=== PATIENT | male | born 1950 ===

== ENCOUNTER 2025-02-13 10:00 | Day surgery (SDC) | payer OTHER ==
[2025-02-06 15:42] VITALS: BP 150/82
[~2025-02-13] VITALS: Ht 167.6 cm; Wt 65.8 kg
[2025-02-13] MEDS ORDERED: CEFAZOLIN SODIUM 1,000 MG VIAL ONE (12:52)
[2025-02-13] MEDS ORDERED: LIDOCAINE HCL 1%/EPINEPHRINE 20ML VIAL IJ ONE (13:26)
[2025-02-13] MEDS ORDERED: POVIDONE-IODINE 118 ML BOTT TOP ONE (14:00)
[2025-02-13] MEDS ORDERED: CIPROFLOXACIN2.5 ML OTIC (14:44)
[2025-02-13] MEDS ORDERED: CEPHALEXIN500 M1 PO (14:44)
== END 2025-02-13 17:35 | disposition home or self-care (01) ==
LOC: CIR.AMB 10:00
PROVIDERS: ATTEND Otolaryngology Otology & Neurotology
DX: H72.01 Central perforation of tympanic membrane, right ear (principal); H90.A31 Mixed conductive and sensorineural hearing loss, unilateral, right ear with restricted hearing on the contralateral side